=== PATIENT | female | born 1975 | race Hispanic/Latino ===

== ENCOUNTER 2016-05-22 14:44 | Outpatient (CLI) | payer OTHER ==
--- NOTE | 2016-05-23 14:44 | Mammography Report ---
BILATERAL DIGITAL SCREENING MAMMOGRAM with CAD: 05/22/16 14:44:00 CLINICAL: Routine screening. COMPARISON:05/09/15 FINDINGS: The breasts are heterogeneously dense, which may obscure small masses. No mass, architectural distortion or suspicious calcifications. IMPRESSION: No mammographic evidence of malignancy. BI-RADS CATEGORY: 1 - - Negative RECOMMENDATION: Routine mammographic screening in one year. COMMENT: Patient follow-up letters are generated by our [employer] application. The
== END 2016-05-22 14:45 | disposition home or self-care (01) ==
LOC: SPVWC 14:44
PROVIDERS: ATTEND Obstetrics & Gynecology
DX: Z12.31 Encounter for screening mammogram for malignant neoplasm of breast (principal)
CPT/HCPCS: 77067; G0202

== ENCOUNTER 2019-06-16 12:12 | Outpatient (CLI) | payer OTHER ==
--- NOTE | 2019-06-16 15:37 | Magnetic Resonance Report ---
BILATERAL BREAST MR WITHOUT AND WITH GADOLINIUM INDICATION: Right breast lump. Recent Negative Mammogram at [facility] COMPARISONS: None available. TECHNIQUE: Axial 1.0 mm T1 without, axial high-resolution 2.0 mm T2 and axial 1.0 mm dynamic vibrant high-resolution postcontrast T1 fat saturation sequences on a 1.5 Stacie magnet. The examination was p erformed with an 8-channel dedicated [place] breast coil. Post-processing with CAD and subtraction was performed on an [employer] workstation. 15.0 cc of MultiHance was injected without incident for the c ontrast portion of the exam. Consent was obtained prior to the administration of the contrast. FINDINGS: RIGHT BREAST: Minimal background parenchymal enhancement. No mass or suspicious enhancement. No suspi cious lymph nodes. LEFT BREAST: Minimal background parenchymal enhancement. No mass or suspicious enhancement. No suspic ious lymph nodes. IMPRESSION: Normal study. Recommend clinical follow-up and routine mammographic screening. BI-RADS Category 1: Negative Signer Name: Angel Dubois MD Signed: 06/16/2019 3:33 PM Workstation Name: [id number]
== END 2019-06-16 12:13 | disposition home or self-care (01) ==
LOC: SPVIMAG 12:12
PROVIDERS: ATTEND Surgery
DX: N63.11 Unspecified lump in the right breast, upper outer quadrant (principal)
CPT/HCPCS: A9577; C8908; 77049

== ENCOUNTER 2020-12-20 14:33 | Outpatient (CLI) | payer OTHER ==
--- NOTE | 2020-12-24 08:49 | Mammography Report ---
DIGITAL SCREENING MAMMOGRAM WITH CAD, 12/20/2020 CLINICAL INFORMATION / INDICATION: Routine screening mammography. TECHNIQUE: Digital bilateral 2D and 3D mammography with tomosynthesis was obtained in the craniocaud al and mediolateral oblique projections. This examination was interpreted with the benefit of Compute r-Aided Detection analysis. COMPARISON: 11/16/2019, 05/22/2016 FINDINGS: Breast Density: The breasts are extremely dense, which lowers the sensitivity of mammography. No dominant mass, suspicious calcifications, or architectural distortion in either breast. IMPRESSION: No mammographic evidence of malignancy. Follow up recommendation: Routine yearly BI-RADS Category 1: Negative. A "normal" or negative report should not discourage follow up or biopsy of a clinically significant f inding. A written summary of these findings will be mailed to the patient. The patient will be entered into a mammography reporting system which will generate a reminder letter for the patient's next appointmen t at the appropriate interval. The [employer] recommends yearly mammograms starting at age 40 and continuing as l tom as a woman is in good health. Breast MRI is recommended for women with an approximate 20-25% or greater lifetime risk of breast cancer, including women with a strong family history of breast or ova [place] cancer or who have been treated for Hodgkin's disease. Signer Name: Louisa Somers MD Signed: 12/24/2020 8:45 AM Workstation Name: [id number]
== END 2020-12-20 14:34 | disposition home or self-care (01) ==
LOC: SPVWC 14:33
PROVIDERS: ATTEND Surgery
DX: Z12.31 Encounter for screening mammogram for malignant neoplasm of breast (principal)
CPT/HCPCS: 77063; 77067

== ENCOUNTER 2021-01-29 08:21 | Outpatient (CLI) | payer OTHER ==
--- NOTE | 2021-01-29 14:04 | Magnetic Resonance Report ---
Bilateral breast MRI with and without contrast. History: Family history of breast and ovarian cancer Procedure: Axial T1 and T2-weighted fat-sat images were obtained precontrast. 17 cc Clariscan was in jected intravenously and serial axial T1-weighted images with fat saturation were obtained postcontra st. 3-D MIP projections, Kinetic analysis and subtraction imaging was utilized to evaluate. [employer] 8 channel breast coil was utilized for image acquisition. Comparison: MR breast 06/16/2019, bilateral mammogram 12/20/2020 Findings: Background level of enhancement is mild. No suspicious axillary or clavicular nodes are identified. No abnormal bone marrow signal is seen. No significant chest wall enhancement is noted. Right breast: Mild proliferative type changes are again seen. No significant change is seen from prev ious study. No suspicious lesions are noted. Left breast: Mild proliferative type changes are again seen. No significant change is seen from previ ous study. No suspicious lesions are noted. Impression: No suspicious lesions are seen BIRADS: 2: Benign Signer Name: Rinku Armstrong MD Signed: 01/29/2021 2:00 PM Workstation Name: [id number]
== END 2021-01-29 08:22 | disposition home or self-care (01) ==
LOC: SPVIMAG 08:21
PROVIDERS: ATTEND Surgery
DX: N60.19 Diffuse cystic mastopathy of unspecified breast (principal); Z80.41 Family history of malignant neoplasm of ovary; Z80.3 Family history of malignant neoplasm of breast
CPT/HCPCS: A9575; C8908; 77049